=== PATIENT | male | born 1975 | race African-American/Black ===

== ENCOUNTER 2020-12-21 18:32 | Emergency (ER) | payer SELFPAY ==
[~2020-12-21] VITALS: Ht 175.3 cm; Wt 80.0 kg
[2020-12-21 19:29] LABS: BASOPHILS % 1.2 % (0.0-2.0); EOSINOPHILS % 4.6 % (0.0-5.0); HEMOGLOBIN. 12.8 g/dL (14.0-18.0); LYMPHOCYTES % 28.9 % (20.0-50.0); MEAN CORPUSCULAR HEMOGLOBIN 27.5 pg (28.0-32.0); MEAN CORPUSCULAR VOLUME 81.8 fL (80.0-94.0); MEAN PLATELET VOLUME 7.2 fl (7.4-10.4); MONOCYTES % 8.7 % (2.0-8.0); NEUTROPHILS % 56.6 % (40.0-76.0); PLATELET 235 x1000/uL (130-400); RED BLOOD CELL COUNT 4.64 mill/uL (4.7-6.1)
[2020-12-21 19:40] LABS: CHLORIDE 102 mEq/L (98-107)
[2020-12-21 21:10] VITALS: BP 130/70
== END 2020-12-21 21:36 | disposition home or self-care (01) ==
LOC: ER 18:32
DX: R07.89 Other chest pain (principal)
CPT/HCPCS: 36415; 71045; 80053; 83880; 84484; 85025; 93005; 99285